=== PATIENT | female | born 1960 | race Caucasian/White ===

== ENCOUNTER 2024-10-06 09:10 | Emergency (ER) | payer SELFPAY ==
--- OUTSIDE RECORDS SUMMARY | 2024-10-06 09:15 | XMS REPORT | Continuity of Care Document ---
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 Impression By: Lorena Cannon M.D. CAT SCAN - CT CHEST W/CONTRAST 04/21 2224 Report Impression - Status: SIGNED Entered: 04/21/20212305 IMPRESSION: No acute traumatic findings in the chest. Nondisplaced left sacral ala, left inferior pubic ramus and right superior pubic ramus fractures. No pelvic free fluid or soft tissue hematoma. Impression By: Lorena Cannon M.D. CAT SCAN - CT ABD PELVIS W/CONT 04/21 2224 Report Impression - Status: SIGNED Entered: 04/21/20212305 IMPRESSION: No acute traumatic findings in the chest. Nondisplaced left sacral ala, left inferior pubic ramus and right superior pubic ramus fractures. No pelvic free fluid or soft tissue hematoma. Impression By: Lorena Cannon M.D. Lab Imaging Statement Laboratory radiographic studies reviewed and considered in the medical decision-making. Re-Evaluation MDM Free Text MDM Notes Free Text MDM Notes Pt with several fx's ortho consulted. Will admit for possible surgical fxation ED Course Medication(s) Ordered Medication(s) Ordered: Central Nervous System Agents Sig/Low Start time Last Medication Dose Route Stop Time Status Admin Aspirin 81 MG DAILY 04/22 0900 AC 04/25 PO 05/22 0859 1600 Patient Discharge Departure Vital Signs/Condition Vital Signs First Documented: Result Date Time Pulse Ox 97 04/21 2016 B/P 135/88 04/21 2016 B/P Mean 103 04/21 2016 O2 Delivery Room air 04/21 2016 Temp 36.8 04/21 2016 Pulse 79 04/21 2016 Resp 19 04/21 2016 Last Documented: Result Date Time Pulse Ox 97 04/21 2016 B/P 135/88 04/21 2016 B/P Mean 103 04/21 2016 O2 Delivery Room air 04/21 2016 Temp 36.8 04/21 2016 Pulse 79 04/21 2016 Resp 19 04/21 2016 All vital signs available at the time of this entry have been reviewed. Clinical Impression Clinical Impression Primary Impression: Pelvic fracture Disposition Decision Admit )( Admission Accepts Yes )( Accepted Time 0227 )( Accepted Date 04/21/21 at 0604 RPT #[id number] END OF REPORT [facility]
[2024-10-06] MEDS ORDERED: ALBUTEROL 2.5 MG/3 ML NEB SOL ONE (09:34)
[2024-10-06] MEDS ORDERED: predniSONE 20 MG TAB ONE (09:34)
[2024-10-06] MEDS ORDERED: IPRATROPIUM BROM 0.5MG/2.5ML ONE (09:35)
--- NOTE | 2024-10-06 09:54 | RAD REPORT ---
EXAMINATION: TWO VIEW CHEST XR CLINICAL INDICATION: Cough;Congestion TECHNIQUE: 2 views of the chest was performed. COMPARISON: No prior exam. FINDINGS: The lungs are hyperexpanded suggesting COPD. The heart is upper limit of normal in size. No displaced fractures evident. Small hiatal hernia. IMPRESSION: COPD is suspected without acute finding identified.
[2024-10-06 10:29] LABS: Influenza A Ag Negative; Influenza B Ag Negative; SARS-CoV-2 Antigen Rapid Res Negative (Negative)
--- NOTE | 2024-10-06 10:35 | ER ---
Nurse's Notes [facility] Name: Izzy Boyd Age: 64 yrs Sex: Female : 1960 Arrival Date: 10/06/2024 Time: 09:10 Bed 12 Private MD: Diagnosis: Acute bronchitis, unspecified Presentation: 10/06 09:22 Chief complaint: Patient states: COUGH, CONGESTION, FEVER SINCE FRIDAY. REPORTS WAS dd2 EXPOSED TO COVID RECENTLY. Coronavirus screen: congestion, cough unrelated to allergies, fever, runny nose. Ebola Screen: No symptoms or risks identified at this time. Initial Sepsis Screen: Does the patient meet any 2 criteria? No. Patient's initial sepsis screen is negative. Does the patient have a suspected source of infection? No. Patient's initial sepsis screen is negative. Risk Assessment: Do you want to hurt yourself or someone else? Patient reports no desire to harm self or others. Onset of symptoms was October 01, 2024. 09:22 Method Of Arrival: Ambulatory dd2 09:22 Acuity: CLARITZA 3 dd2 Triage Assessment: 09:25 General: Appears in no apparent distress. uncomfortable, Behavior is calm, cooperative, dd2 appropriate for age. Pain: Denies pain. EENT: Reports nasal congestion. Respiratory: Reports cough that is productive, Onset: The symptoms/episode began/occurred 10/01/2024, the patient has mild shortness of breath. Historical: - Allergies: 09:25 No Known Allergies; dd2 - PMHx: 09:25 Hypertensive disorder; dd2 - PSHx: 09:25 None; dd2 - Immunization history:: Adult Immunizations unknown. - Infectious Disease History:: Denies. - Social history:: Smoking status: Patient denies any tobacco usage or history of. Screenin:45 [facility] ED Fall Risk Assessment (Adult) History of falling in the last 3 months, bp including since admission No falls in past 3 months (0 pts) Confusion or Disorientation No (0 pts) Intoxicated or Sedated No (0 pts) Impaired Gait No (0 pts) Mobility Assist Device Used No (0 pt) Altered Elimination No (0 pt) Score/Fall Risk Level 0 - 2 = Low Risk Oriented to surroundings. Abuse screen: Denies threats or abuse. Denies injuries from another. Nutritional screening: No deficits noted. Tuberculosis screening: No symptoms or risk factors identified. Assessment: 10:46 Cardiovascular: Rhythm is sinus rhythm. Respiratory: Airway is patent Respiratory bp effort is even, unlabored, Breath sounds are coarse bilaterally. Vital Signs: 09:22 BP 149 / 88; Pulse 82; Resp 18; Temp 98.1; Pulse Ox 95% on R/A; Weight 75.3 kg; Pain dd2 0/10; 10:45 BP 138 / 79; Pulse 85; Resp 16; Pulse Ox 96% ; bp 09:22 Pain Scale: Adult dd2 ED Course: 09:13 Patient arrived in ED. mr 09:16 [facility]-C [facility] kb 09:16 Ulisses Nowak DO is Attending Physician. kb 09:25 Triage completed. dd2 09:25 Arm band placed on right wrist. dd2 09:47 Chest Pa And Lat (2 Views) XRAY In Process Unspecified. EDMS 09:58 Marilee Padron RN is Primary Nurse. hb 09:58 COVID-19 Ag + Flu A+B Ag Sent. hb 10:45 Patient has correct armband on for positive identification. bp 10:45 No provider procedures requiring assistance completed. Patient did not have IV access bp during this emergency room visit. Administered Medications: 09:58 Drug: predniSONE PO 40 mg PO once Route: PO; hb 10:19 Follow up: Response: No adverse reaction bp 09:58 Drug: Albuterol Inhalation 2.5 mg Inhalation once Route: Inhalation; hb 09:58 Drug: Ipratropium Inhalation Aerosol 0.5 mg Inhalation once Route: Inhalation; hb Medication: 10:47 VIS not applicable for this client. bp Outcome: 10:34 Discharge ordered by . kb 10:45 Discharged to home ambulatory, bp 10:45 Condition: stable 10:45 Discharge instructions given to patient, Instructed on discharge instructions, follow up and referral plans. medication usage, Demonstrated understanding of instructions, follow-up care, medications, Prescriptions given X 1, 10:47 Patient left the ED. bp Signatures: Dispatcher [employer] EDMS Nikia Garcia FNP-C NURSING SPECIALIST-Ckb Ogden Merna, Reg Reg mr Marilee Padron RN RN hb Peltier, Brian, RN RN bp DAVIS, DIANA, RN RN dd2
--- NOTE | 2024-10-06 10:35 | EDPHYS ---
Physician Documentation [facility] Name: Izzy Boyd Age: 64 yrs Sex: Female : 1960 Arrival Date: 10/06/2024 Time: 09:10 Bed 12 Private MD: ED Physician Ulisses Nowka HPI: 10/06 10:14 This 64 yrs old Female presents to ER via Ambulatory with complaints of Cough, kb Breathing Difficulty, Fever. 10:14 Pt is a 64 year old female who presents for cough, congestion, fever and shortness of kb breath that started 6 days ago. States two of her residents tested positive for covid so she thinks that is what she has. . Historical: - Allergies: 09:25 No Known Allergies; dd2 - PMHx: 09:25 Hypertensive disorder; dd2 - PSHx: 09:25 None; dd2 - Immunization history:: Adult Immunizations unknown. - Infectious Disease History:: Denies. - Social history:: Smoking status: Patient denies any tobacco usage or history of. ROS: 10:15 Constitutional: As per HPI kb Exam: 10:15 Constitutional: This is a well developed, well nourished patient who is awake, alert, kb and in no acute distress. Head/Face: Normocephalic, atraumatic. ENT: Moist Mucous membranes Cardiovascular: Regular rate Abdomen/GI: Soft, non-tender. No distention Skin: Warm, dry with normal turgor. Normal color. MS/ Extremity: Pulses equal, no cyanosis. Neurovascular intact. Full, normal range of motion. Neuro: Awake and alert, GCS 15, oriented to person, place, time, and situation. 10:15 Respiratory: the patient does not display signs of respiratory distress, Respirations: normal, Breath sounds: wheezing: expiratory that is mild, is scattered, Vital Signs: 09:22 BP 149 / 88; Pulse 82; Resp 18; Temp 98.1; Pulse Ox 95% on R/A; Weight 75.3 kg; Pain dd2 0/10; 10:45 BP 138 / 79; Pulse 85; Resp 16; Pulse Ox 96% ; bp 09:22 Pain Scale: Adult dd2 MDM: 09:26 Medical Screening Exam initiated kb 10:16 Differential Diagnosis: Bronchitis Influenza Upper Respiratory Infection Viral Syndrome kb Pneumonia Other covid. Data reviewed: vital signs, nurses notes. 10:36 I considered the following discharge prescriptions or medication management in the emergency department I discussed and recommended Over The Counter medications, Antibiotics: At this time antibiotics are not recommended. Counseling: I had a detailed discussion with the patient and/or guardian regarding the historical points, exam findings, and any diagnostic results supporting the discharge/admit diagnosis, lab results, radiology results, the need for outpatient follow up, a family practitioner, to return to the emergency department if symptoms worsen or persist or if there are any questions or concerns that arise at home. 10:36 Independent interpretation of the following test(s) in the Emergency Department X-Ray: kb My interpretation is no pneumonia. 10/06 09:24 Order name: COVID-19 Ag + Flu A+B Ag; Complete Time: 10:33 kb 10/06 09:24 Order name: Chest Pa And Lat (2 Views) XRAY; Complete Time: 09:58 kb Administered Medications: 09:58 Drug: predniSONE PO 40 mg PO once Route: PO; hb 10:19 Follow up: Response: No adverse reaction bp 09:58 Drug: Albuterol Inhalation 2.5 mg Inhalation once Route: Inhalation; hb 09:58 Drug: Ipratropium Inhalation Aerosol 0.5 mg Inhalation once Route: Inhalation; hb Disposition: 10:51 I was immediately available on-site in the Emergency Department for consultation in the ms3 care of the patient. Disposition Summary: 10/06/24 10:34 Discharge Ordered Notes: Location: Home Condition: Stable kb Diagnosis - Acute bronchitis, unspecified kb Followup: kb - With: Emergency Department - When: As needed - Reason: Worsening of condition Followup: kb - With: Private Physician - When: 2 - 3 days - Reason: Recheck today's complaints, Continuance of care, Re-evaluation by your physician Discharge Instructions: - Discharge Summary Sheet kb - Acute Bronchitis, Adult, [id number] kb Forms: - Work release form kb - Medication Reconciliation Form kb - Antibiotic Education kb - Prescription Opioid Use kb - Patient Portal Instructions kb - Leadership Thank You Letter kb Prescriptions: - Prednisone 20 mg Oral Tablet - take 1 tablet ORAL route once daily for 5 days; 5 tablet; Refills: 0, Product kb Selection Permitted Signatures: Dispatcher [employer] Nikia Nichols FNP-C FNP-Marilee Rainey, RN RN hb Ulisses Nowak, DO DO ms3 THANH DIAS RN RN dd2 Roger Pang RN bp Corrections: (The following items were deleted from the chart) 09:25 09:25 Chest Pa And Lat (2 Views)+[email or web address] ordered. EDMS EDMS 10:36 10:34 Cough kb kb 10:36 10:34 Fever, unspecified kb kb
[2024-10-06 11:07] VITALS: BP 138/79; TEMP 98.1; O2SAT 96
== END 2024-10-06 10:47 | disposition home or self-care (01) ==
LOC: ER 09:10
DX: J20.9 Acute bronchitis, unspecified (principal); I10 Essential (primary) hypertension; Z11.52 Encounter for screening for COVID-19
CPT/HCPCS: 36415; 71046; 87428; 99284; J7512; J7613; J7644